=== PATIENT | female | born 1950 ===

== ENCOUNTER 2018-12-20 01:44 | Observation (INO) | payer MEDICARE, OTHER ==
--- NOTE | 2018-12-19 12:15 | LEVENE H&P ---
DATE OF ADMISSION: December 20, 2018 IDENTIFICATION/CHIEF COMPLAINT Bijal is a 67-year-old woman with a chief complaint of bilateral knee pain. HISTORY OF PRESENT ILLNESS Patient has a longstanding history of bilateral knee arthritis, which is end- stage. She has progressive pain and disability refractor to conservative care. Surgery is indicated to relieve symptoms after failure of nonoperative measures. PAST MEDICAL HISTORY 1. Hypertension, controlled on medication. 2. Hypothyroidism, controlled on medication. PAST SURGICAL HISTORY 1, Bowel resection x2. 2. Hysterectomy. ALLERGIES Seasonal. She vomits with codeine but has no true drug allergy. CURRENT MEDICATIONS Synthroid 150 mcg per day, Triamterene/hydrochlorothiazide 37.5 mg p.o. every day. She takes vitamins as well. FAMILY HISTORY Notable for a father with diabetes and stroke and mother with stroke. SOCIAL HISTORY Negative for tobacco and alcohol use. REVIEW OF SYSTEMS Negative. PHYSICAL EXAMINATION GENERAL: This is a fit healthy woman who appears her stated age. HEENT: Normocephalic, atraumatic. NECK: Supple. LUNGS: Clear. HEART: Regular. ABDOMEN: Soft. ORTHOPEDIC EXAMINATION Bilateral valgus knee alignment as noted. Knees are grossly stable. Effusion is present. Extensor function is intact. Motion is relatively supple. Skin is intact. Neurovascular function is intact. Radiographs demonstrate end-stage lateral compartment degenerative joint disease. ASSESSMENT Bilateral knee end-stage degenerative joint disease, progressively painful and debilitating, refractory to conservative care. PLAN Per patient's request, we are going to proceed with single stage bilateral total knee arthroplasty. The nature of the procedure, the risks, benefits, the anticipated rehabilitative course were outlined. Risks of the procedure include but are not limited to , major medical or anesthetic complication, infection, neurovascular injury, blood transfusion, stiffness, scarring, refractory tendon rupture, instability, implant loosening, migration or failure, persistent or recurrent pain or symptoms, need for additional surgery and other unforeseen. She understands and wishes to proceed. A signed permit is placed in the chart. No guarantees are given or implied. We again discussed the relative risks and benefits of single knee replacement with a second stage for another knee versus single stage bilateral and she is aware of the relative risks and benefits. NEELIMA
[2018-12-19 15:01] LABS: INR 1.11
[~2018-12-20] VITALS: Ht 165.1 cm; Wt 58.5 kg
[2018-12-20] VITALS (12 sets, daily range): BP systolic 94–117; BP diastolic 59–80
[~2018-12-20 01:44] MED LIST: ACETAMINOPHEN 500 MG TAB PO ONE; CELECOXIB 200 MG CAP PO ONE; HYDR-2966 PO; LEVO150T78 PO; PREGABALIN 150 MG CAPSULE PO ONE
[2018-12-20] MEDS ORDERED: PREGABALIN 150 MG CAPSULE PO ONE (10:05)
[2018-12-20] MEDS ORDERED: ACETAMINOPHEN 500 MG TAB PO ONE (10:05)
[2018-12-20] MEDS ORDERED: CELECOXIB 200 MG CAP PO ONE (10:05)
[2018-12-20] MEDS ORDERED: ceFAZolin(*) 1 GM VIAL 1 GM in NS(*) 0.9% 100 ML ADDVANT BAG 100 ML IVPB ONE (12:00)
[2018-12-20] MEDS ORDERED: FAMOTIDINE 20 MG TAB PO ONE (12:00)
[2018-12-20] MEDS ORDERED: MIDAZOLAM 2 MG/2 ML VIAL IVP PRN (12:00)
[2018-12-20] MEDS ORDERED: NORMOSOL R SOLN(*) 1000 ML BAG 1,000 ML IV PRN ×2 (12:00→18:15)
[2018-12-20] MEDS ORDERED: LIDOCAINE/SOD BICARB 8.4% SYR ID ONE (12:00)
[2018-12-20] MEDS ORDERED: ROPIVACAINE/EPI/CLONIDINE/KET 50 ML SYRINGE INJ ONE ×2 (12:00→13:45)
[2018-12-20] MEDS ORDERED: DEXAMETHASONE SOD PHOS 10MG/ML ONE (12:44)
[2018-12-20] MEDS ORDERED: LIDOCAINE MPF 1% 5 ML VIAL ONE (12:44)
[2018-12-20] MEDS ORDERED: ONDANSETRON 4 MG/2 ML VIAL ONE (12:44)
[2018-12-20] MEDS ORDERED: fentaNYL CITR 100 MCG/2 ML AMP ONE ×2 (12:44→18:16)
[2018-12-20] MEDS ORDERED: PROPOFOL(*)1000 MG/100 ML VIAL 100 ML ONE (12:48)
[2018-12-20] MEDS ORDERED: KETAMINE HCL 200 MG/20 ML MDV ONE (12:53)
[2018-12-20] MEDS ORDERED: VANCOMYCIN 1 GM VIAL ONE (14:24)
[2018-12-20] MEDS ORDERED: TRANEXAMIC AC 1000 MG/10ML SDV 1,000 MG in DEXTROSE 5% 50 ML BAG 50 ML IVPB ONE (15:00)
[2018-12-20] MEDS ORDERED: LACTATED RINGER 3000 ML BAG IR ONE (15:29)
[2018-12-20] MEDS ORDERED: NS 0.9% IRRIGATION 1000ML PLCT IR ONE (15:29)
[2018-12-20] MEDS ORDERED: WATER STERILE FOR IRRIG 1000ML IR ONE (15:31)
[2018-12-20] MEDS ORDERED: diphenhydrAMINE 25 MG CAP PO PRN (18:15)
[2018-12-20] MEDS ORDERED: FLUSH 10 ML SYR IVP PRN (18:15)
[2018-12-20] MEDS ORDERED: ACETAMINOPHEN 325 MG TAB PO PRN (18:15)
[2018-12-20] MEDS ORDERED: ZOLPIDEM TARTRATE 5 MG TAB PO PRN (18:15)
[2018-12-20] MEDS ORDERED: diphenhydrAMINE 50 MG/ML VIAL IVP PRN (18:15)
[2018-12-20] MEDS ORDERED: MAGNESIUM HYDROXIDE* 30ML UDCP PO PRN (18:15)
[2018-12-20] MEDS ORDERED: BENZOCAINE/MENTHOL 1 EACH LOZG PO PRN (18:15)
[2018-12-20] MEDS ORDERED: PROMETHAZINE 25 MG/ML 1 ML AMP IVP PRN (18:15)
[2018-12-20] MEDS ORDERED: BISACODYL 10 MG SUPP PR PRN (18:15)
--- NOTE | 2018-12-20 21:36 | Hospitalist Progress Note ---
Subjective Progress Notes Subjective No cp/sob. 40cc EBL. 1800cc of crystalloid, TXA and dexamethasone given intra- op Physical Exam Vital Signs Date Time Temp Pulse Resp B/P (MAP) Pulse Ox O2 Delivery O2 Flow Rate FiO2 12/20/18 19:40 98.0 64 14 108/64 (79) 95 Nasal Cannula 2.0 General Appearance: Alert, Awake, No Acute Distress Cardiovascular: Regular Rate and Rhythm Respiratory: Clear to Auscultation Extremities: No Edema Assessment and Plan Problems: (1) Status post knee replacement Status: Acute Assessment & Plan: No CV/pulmonary issues. She denies a h/o DVT/PE, but has had some superficial thrombophlebitis in the past. She will be on ASA 325 mg a day for 30 days for blood clot prevention. She reports an upset stomach with ASA, so will start famotidine for some prophylaxis. (2) Hypothyroid Status: Chronic Assessment & Plan: Continue chronic levothyroxine. (3) Edema Status: Chronic Assessment & Plan: She chronically take HCTZ for edema. Will give only if SBP>145 and she is in agreement with that plan. Exam Sepsis Risk: No Definite Risk Problem Qualifiers (1) Status post knee replacement: Laterality: bilateral Qualified Codes: Z96.653 - Presence of artificial knee joint, bilateral BRIE NATION MD Dec 20, 2018 21:36
[2018-12-20] MEDS: FAMOTIDINE 20 MG TAB PO SCH (21:57)
[2018-12-20] MEDS: ceFAZolin(*) 1 GM VIAL 1 GM in NS(*) 0.9% 100 ML ADDVANT BAG 100 ML IVPB SCH (22:48)
[2018-12-20] MEDS: traMADol 50 MG TAB PO PRN (23:00)
[2018-12-21] VITALS (9 sets, daily range): BP systolic 83–129; BP diastolic 53–75; Ht 165.1 cm; Wt 58.5 kg
--- NOTE | 2018-12-21 02:49 | RADIOLOGY IMAGING REPORT ---
FACILITY: [facility] - [place] PATIENT NAME: Bijal Montoya : 1950 MR: [id number] V: [id number] EXAM DATE: [id number] ORDERING PHYSICIAN: ARANZA MULLINS TECHNOLOGIST: Location: [facility] [place] Patient: Bijal Montoya : 1950 Visit/Account:[id number] Date of Sevice: 12/20/2018 INDICATION: S/P BILATERAL TOTAL KNEE REPLACEMENT EXAM DATE: 12/20/2018 5:25 PM COMPARISON: None. FINDINGS: 2 views right knee. Mineralization is low normal. No acute alignment abnormality or fracture. Knee a rthroplasty prosthesis in place with no apparent acute abnormality. Air in the soft tissues about th e knee and the joint space consistent with recent procedure. IMPRESSION: Postoperative changes related to right total knee arthroplasty with no apparent acute co mplication. Report Dictated By: Lars Mclaughlin MD at 12/21/2018 2:44 AM Report E-Signed By: Lars Mclaughlin MD at 12/21/2018 2:46 AM WSN:[id number]
--- NOTE | 2018-12-21 02:50 | RADIOLOGY IMAGING REPORT ---
FACILITY: [facility] PATIENT NAME: Bijal Montoya : 1950 MR: [id number] V: [id number] EXAM DATE: [id number] ORDERING PHYSICIAN: ARANZA MULLINS TECHNOLOGIST: Location: [facility] Patient: Bijal Montoya : 1950 Visit/Account:[id number] Date of Sevice: 12/20/2018 INDICATION: S/P BILATERAL TOTAL KNEE REPLACEMENT EXAM DATE: 12/20/2018 5:25 PM COMPARISON: None. FINDINGS: 2 views left knee. Mineralization is low normal. No acute alignment abnormality or fracture. Knee ar throplasty prosthesis in place with no apparent acute abnormality. Air in the soft tissues about the knee and the joint space consistent with recent procedure. IMPRESSION: Postoperative changes related to left total knee arthroplasty with no apparent acute com plication. Report Dictated By: Lars Mclaughlin MD at 12/21/2018 2:46 AM Report E-Signed By: Lars Mclaughlin MD at 12/21/2018 2:47 AM WSN:[id number]
--- NOTE | 2018-12-21 04:42 | OPERATIVE REPORT 1 ---
EVENT DATE: December 20, 2018 SURGEON: Taj Cedillo MD ANESTHESIOLOGIST: Asad Horne MD ANESTHESIA: General plus spinal. NURSES EDUCATOR: Terrence Christianson PA-C PREOPERATIVE DIAGNOSIS Bilateral knee degenerative joint disease. POSTOPERATIVE DIAGNOSIS Bilateral knee degenerative joint disease. PROCEDURE PERFORMED Bilateral single-stage total knee arthroplasty. ESTIMATED BLOOD LOSS Minimal. DRAINS None. SPECIMENS None. COMPLICATIONS None apparent. TOURNIQUET TIME On the left, 44 minutes; on the right, 48 minutes. IMPLANTS USED On the left, the [place] Triathlon knee system, a 5 left PS femur, a 5 standard tibial base plate, 36 mm universal all-polyethylene patellar button, 11 mm PS tibial tray insert. On the right, we have the [place] Triathlon knee system, a 5 right PS femur, a 5 standard tibial base plate, 36 mm universal symmetric all- polyethylene patellar button, 11 mm PS tibial tray liner. INDICATIONS Bijal is a 68-year-old woman with intractable pain and disability related to bilateral knee arthritis. Surgery is indicated to relieve symptoms and improve function after failure of nonoperative measures. DESCRIPTION OF PROCEDURE Patient was taken to the operating room and placed supine on the operating table. A spinal block was placed by the anesthesiologist. General anesthesia was induced. Antibiotics were administered IV. Both lower extremities were simultaneously prepped and draped in the usual sterile fashion for orthopedic surgery. TXA was administered. Left lower extremity was operated on first. Limb was exsanguinated with an Esmarch bandage. Tourniquet was inflated to 250 mmHg. Midline longitudinal incision was made, carried down through the skin, subcu, and extensor mechanism. A full-thickness flap was developed far enough medially to allow a medial parapatellar arthrotomy to be performed. Patella was everted and knee was brought into flexed position. Fat pad, anterior horns of the menisci and the cruciate ligaments were debrided. Subperiosteal capsular release was performed circumferentially around the upper plateau to balance the knee. A step drill was used to enter the distal femur. A 18-[id number] alignment guide was used to engage the isthmus. Cut set for 6 degrees of valgus relative to the anatomic axis. A 10 mm resection block was applied and pinned. Cut was made with an oscillating saw. The AP sizing guide was applied to the distal femur, positioned for 3 degrees of external rotation relative to the posterior condyles. A size 5 was optimal without risk of notching. The four-in-one cutting block was applied. Anterior, posterior, posterior chamfer and anterior chamfer cuts were made respectively. A PS block was applied and centered mediolateral, and the bone was removed from the box. The trial femur has a nice [id number] fit. Attention was turned to tibial preparation. The extramedullary guide was applied and positioned for varus, valgus, posterior slope and rotation. This was set to resect 2 mm from the relatively deficient lateral tibial plateau. It was dropped down 2 mm more to ensure an adequate cut medially. Block was pinned. Extramedullary alignment check was made and the cut was made with an oscillating saw. A 5 base plate provides optimal bony coverage without soft tissue overhang. After removal of osteophytes and posterior condylar bone, gaps were balanced and symmetric, with no additional formal releases required other than mild release of the IT band subperiosteally off Mary Ellen tubercle. The trial tibial component was inserted along with the liner and trial femur, and the knee was brought to extension. The patella was taken from a starting thickness of 22 to a residual of 14 with a patellar clamp and an oscillating saw. The 36 provided optimal bony coverage without soft tissue overhang. Lug holes were drilled. The patella tracks nicely with a no-touch technique. Final tibial preparation consisted of ensuring appropriate rotational and translational position of the component. The box was reamed and the fin was punched. Surfaces were lavaged, a mix of methacrylate was made and the components were cemented in a single stage. Once the cement was fully polymerized, the tourniquet was deflated and meticulous hemostasis assured. The wounds were lavaged to remove all loose debris. The 11 PS tibial tray liner fills up the gap ideally, allowing the knee to drop to full extension without hyperextension, providing optimal subcutaneous tissue tension and stability. The trial was removed. Surfaces were lavaged. The actual liner was locked into the baseplate. Joint was reduced. Arthrotomy was closed in flexion with #2 Ethibond, subcu with 3-0 Vicryl and the skin with ZipLine closure. An identical procedure was then performed on the right side with the exception that the femoral component is right-sided and side-specific. Otherwise, the procedure is essentially identical. At the end of the combined procedure, both limbs were sterilely draped and dressed with Xeroform, cotton dressings and Jeffry wraps. The patient was awakened from anesthesia and taken to the recovery room in stable condition, having tolerated the procedure well. Plan is for rehab per protocol. NATHANIELD
[2018-12-21] MEDS: ceFAZolin(*) 1 GM VIAL 1 GM in NS(*) 0.9% 100 ML ADDVANT BAG 100 ML IVPB SCH ×2 (05:46→14:24)
[2018-12-21] MEDS: traMADol 50 MG TAB PO PRN ×3 (05:58→18:25)
[2018-12-21 06:26] LABS: PLATELET COUNT, AUTOMATED 189 K/uL (150-450)
--- NOTE | 2018-12-21 08:36 | Hospitalist Progress Note ---
Subjective Progress Notes Subjective No cp/sob. No concerns from staff. Physical Exam Vital Signs Date Time Temp Pulse Resp B/P (MAP) Pulse Ox O2 Delivery O2 Flow Rate FiO2 12/21/18 03:28 93 12/21/18 03:28 97.8 63 14 95/58 (70) Nasal Cannula 2.0 Intake and Output 12/21/18 07:00 Intake Total 2025 ml Output Total 790 ml Balance 1235 ml Intake Oral 100 ml IV Total 1925 ml Output Urine Total 750 ml Estimated Blood Loss 40 ml # Voids 2 # Bowel Movements 1 General Appearance: Alert, Awake, No Acute Distress Result Diagram: 12/21/18 0608 Assessment and Plan Problems: (1) Status post knee replacement Status: Acute Assessment & Plan: No CV/pulmonary issues. She denies a h/o DVT/PE, but has had some superficial thrombophlebitis in the past. She will be on ASA 325 mg a day for 30 days for blood clot prevention. She reports an upset stomach with ASA, so will try famotidine for some prophylaxis. (2) Hypothyroid Status: Chronic Assessment & Plan: Continue chronic levothyroxine. (3) Edema Status: Chronic Assessment & Plan: She chronically take HCTZ for edema. Will give only if SBP>145 and she is in agreement with that plan. Exam Sepsis Risk: No Definite Risk Problem Qualifiers (1) Status post knee replacement: Laterality: bilateral Qualified Codes: Z96.653 - Presence of artificial knee joint, bilateral BRIE NATION MD Dec 21, 2018 08:36
[2018-12-21] MEDS: CELECOXIB 200 MG CAP PO SCH ×2 (10:32→16:22)
[2018-12-21] MEDS: FAMOTIDINE 20 MG TAB PO SCH ×2 (10:32→21:21)
[2018-12-21] MEDS: ASPIRIN 325 MG TAB PO SCH (10:32)
--- NOTE | 2018-12-21 16:15 | NUR ---
Physical Therapy Impression PT eval complete. Physical Therapy Goals 1. Mod I bed mobility. 2. Mod I transfers. 3. Mod I gait x 150' with RW. 4. Independent use of CPM. Patient's Goals
--- NOTE | 2018-12-21 16:40 | NUR ---
Physical Therapy Impression Pt demonstrates Mod I for bed mobility, transfers, gait x 1000' with RW, and use of CPM. Pt would benefit from HEP instruction next visit and stair training if Pt desires. Physical Therapy Goals 1. Mod I bed mobility. 2. Mod I transfers. 3. Mod I gait x 150' with RW. 4. Independent use of CPM. Patient's Goals
[2018-12-21] MEDS: DIAZEPAM 5 MG TAB PO PRN (19:33)
[2018-12-21] MEDS: POLYETHYLENE GLYCOL 17 GM PKT PO SCH (21:21)
[2018-12-22] MEDS: traMADol 50 MG TAB PO PRN (01:06)
[2018-12-22] MEDS: DIAZEPAM 5 MG TAB PO PRN (01:34)
[2018-12-22] MEDS: LEVOTHYROXINE SOD 0.150 MG TAB PO SCH (05:40)
[2018-12-22 09:17] VITALS: BP 91/61
[2018-12-22] MEDS ORDERED: NORMOSOL R SOLN(*) 1000 ML BAG 1,000 ML IV ONE (09:30)
[2018-12-22] MEDS: ASPIRIN 325 MG TAB PO SCH (09:31)
[2018-12-22] MEDS: FAMOTIDINE 20 MG TAB PO SCH ×2 (09:31→22:27)
--- NOTE | 2018-12-22 10:02 | Hospitalist Progress Note ---
Subjective Progress Notes Subjective She was admitted s/p bilateral knee replacement. She had c/o nausea this morning and muscle cramps. She had two episodes of vomiting. Patient Complains of: Cardiovascular: No: Chest Pain Respiratory: No: Shortness of Breath Physical Exam Vital Signs Date Time Temp Pulse Resp B/P (MAP) Pulse Ox O2 Delivery O2 Flow Rate FiO2 12/22/18 09:17 73 14 91/61 (71) 94 Room Air 12/21/18 23:37 97.7 12/21/18 19:05 1.0 Intake and Output 12/22/18 07:00 Intake Total 1780 ml Balance 1780 ml Intake Oral 1680 ml IV Total 100 ml # Voids 5 General Appearance: Alert, Awake, No Acute Distress, Afebrile Neuro: No Gross deficits Cardiovascular: Regular Rate and Rhythm Respiratory: No Respiratory Distress, Clear to Auscultation GI: Soft and Non-Tender Psych: Alert & Oriented X3, Appropriate Mood & Affect Result Diagram: 12/21/18 0608 Assessment and Plan Problems: (1) Status post knee replacement Status: Acute Assessment & Plan: No CV/pulmonary issues. She denies a h/o DVT/PE, but has had some superficial thrombophlebitis in the past. She will be on ASA 325 mg a day for 30 days for blood clot prevention. She reports an upset stomach with ASA, so will try famotidine for some prophylaxis. (2) Hypothyroid Status: Chronic Assessment & Plan: Continue chronic levothyroxine. (3) Edema Status: Chronic Assessment & Plan: She chronically take HCTZ for edema. Will give only if SBP>145 and she is in agreement with that plan. Exam Sepsis Risk: No Definite Risk Problem Qualifiers (1) Status post knee replacement: Laterality: bilateral Qualified Codes: Z96.653 - Presence of artificial knee joint, bilateral NIMO YADAV PARK GUARD Dec 22, 2018 10:02
--- NOTE | 2018-12-22 11:48 | NUR ---
Physical Therapy Impression Pt reports persistent nausea since last night, agreeable to therapy session. Pt completed initial bed mobility and transfers Zoey and use of RW. Once up in bathroom, pt reported lightheadedness, requesting to sit. Pt assisted pt to seated position and then provided close CGA and chair follow for ambulation back to bed. Once in bed, BP measured and was 84/57. Pt reports improvement of symptoms once supine.RN notified. Physical Therapy Goals 1. Mod I bed mobility. 2. Mod I transfers. 3. Mod I gait x 150' with RW. 4. Independent use of CPM. Patient's Goals
[2018-12-22] MEDS: METAXALONE 800 MG TAB PO PRN ×2 (15:22→22:27)
--- NOTE | 2018-12-22 15:47 | NUR ---
Physical Therapy Impression Pt has met all PT goals and is safe to d/c home from a mobility stand point when medically appropriate. Pt with no complaints of lightheadedness during session. Bhanu for all mobility, including ambulation x600' with RW. Pt will d/c with OP PT services in place. Physical Therapy Goals 1. Mod I bed mobility. 2. Mod I transfers. 3. Mod I gait x 150' with RW. 4. Independent use of CPM. Patient's Goals
[2018-12-22] MEDS: ACETAMINOPHEN 500 MG TAB PO PRN ×2 (16:18→22:27)
[2018-12-22 16:53] VITALS: BP 103/57
[2018-12-22 19:21] VITALS: BP 127/72
[2018-12-22 20:39] VITALS: BP 102/55
[2018-12-22] MEDS: POLYETHYLENE GLYCOL 17 GM PKT PO SCH (22:27)
[2018-12-22 23:07] VITALS: BP 101/58
[2018-12-23 03:14] VITALS: BP 89/60
[2018-12-23 06:49] VITALS: BP 106/64
[2018-12-23] MEDS: LEVOTHYROXINE SOD 0.150 MG TAB PO SCH (07:16)
[2018-12-23] MEDS ORDERED: ASPI-757 PO (07:19)
[2018-12-23] MEDS ORDERED: TRAM-420 PO (07:22)
[2018-12-23] MEDS ORDERED: META-1 PO (07:24)
[2018-12-23] MEDS: traMADol 50 MG TAB PO PRN (08:49)
[2018-12-23] MEDS: FAMOTIDINE 20 MG TAB PO SCH (08:49)
[2018-12-23] MEDS: ASPIRIN 325 MG TAB PO SCH (08:49)
--- NOTE | 2018-12-23 09:19 | Hospitalist Progress Note ---
Subjective Progress Notes Subjective She was admitted s/p bilateral knee replacement. She is feeling better today, has no complaints. She would like to go home today. Patient Complains of: Cardiovascular: No: Chest Pain Respiratory: No: Shortness of Breath Physical Exam Vital Signs Date Time Temp Pulse Resp B/P (MAP) Pulse Ox O2 Delivery O2 Flow Rate FiO2 12/23/18 06:49 99.1 70 12 106/64 (78) 98 Room Air 12/21/18 19:05 1.0 Intake and Output 12/23/18 07:00 Intake Total 610 ml Balance 610 ml Intake Oral 610 ml # Voids 4 # [place] 1 General Appearance: Alert, Awake, No Acute Distress, Afebrile Neuro: No Gross deficits Cardiovascular: Regular Rate and Rhythm Respiratory: No Respiratory Distress, Clear to Auscultation GI: Soft and Non-Tender Psych: Alert & Oriented X3, Appropriate Mood & Affect Result Diagram: 12/21/18 0608 Assessment and Plan Problems: (1) Status post knee replacement Status: Acute Assessment & Plan: No CV/pulmonary issues. She denies a h/o DVT/PE, but has had some superficial thrombophlebitis in the past. She will be on ASA 325 mg a day for 30 days for blood clot prevention. She reports an upset stomach with ASA, so will try famotidine for some prophylaxis. She will continue this at home. (2) Hypothyroid Status: Chronic Assessment & Plan: Continue chronic levothyroxine. (3) Edema Status: Chronic Assessment & Plan: She chronically take HCTZ for edema. Will give only if SBP>145 and she is in agreement with that plan. She will hold this medication at this time at home. Exam Sepsis Risk: No Definite Risk Problem Qualifiers (1) Status post knee replacement: Laterality: bilateral Qualified Codes: Z96.653 - Presence of artificial knee joint, bilateral NIMO YADAV ASSOCIATE PROFESSOR Dec 23, 2018 09:19
--- NOTE | 2018-12-23 09:28 | NUR ---
Physical Therapy Impression Pt safe for DC when medically appropriate. Physical Therapy Goals 1. Mod I bed mobility. 2. Mod I transfers. 3. Mod I gait x 150' with RW. 4. Independent use of CPM. Patient's Goals
[2018-12-23] MEDS: ACETAMINOPHEN 500 MG TAB PO PRN (09:57)
== END 2018-12-23 07:25 | disposition home or self-care (01) ==
LOC: OR 01:44 → MED 19:30
PROVIDERS: ADMIT Orthopaedic Surgery; ATTEND Orthopaedic Surgery
DX: M17.0 Bilateral primary osteoarthritis of knee (principal); I10 Essential (primary) hypertension; Z79.01 Long term (current) use of anticoagulants; E03.9 Hypothyroidism, unspecified
CPT/HCPCS: 27447; 36415; 73560; 85025; 85610; 86850; 86900; 86901; 97116; 97161; 97530; A9270; C1713; C1776; G0378; J0690; J1100; J2001; J2250; J2405; J2550; J2704; J3010; J3370; J3490; J7050; J7060